=== PATIENT | male | born 1995 | race Caucasian/White ===

== ENCOUNTER 2020-05-14 18:12 | Emergency (ER) | payer MEDICAID ==
[~2020-05-14] VITALS: Ht 177.8 cm; Wt 148.8 kg
[~2020-05-14 18:12] MED LIST: BG FS; HUMULIN R100 U/1 M1 SC; LANTI SQ; NOR7T PO; ZITHROMAX250 MG PO
[2020-05-14 18:33] VITALS: BP 147/97; Ht 177.8 cm; Wt 148.8 kg
== END 2020-05-14 22:17 | disposition left against medical advice (07) ==
LOC: ED 18:12
DX: Z53.21 Procedure and treatment not carried out due to patient leaving prior to being seen by health care provider (principal)

== ENCOUNTER 2020-08-22 11:24 | Emergency (ER) | payer OTHER ==
[~2020-08-22] VITALS: Ht 177.8 cm; Wt 142.4 kg
[2020-08-22 11:56] VITALS: Ht 177.8 cm; Wt 142.4 kg
[2020-08-22 12:50] LABS: BASOPHIL % 0.9 % (0.2-1.5); PLATELET COUNT 194 x10^3mcL (152-348); RED CELL DISTRIBUTION WIDTH 13.3 % (12.1-16.2)
[2020-08-22 13:01] LABS: CALCIUM 9.3 mg/dL (8.5-10.1); CARBON DIOXIDE 29.7 mmol/L (21-32); CHLORIDE SERUM 96 mmol/L (98-107); GFR1 > 60 mL/min; GLUCOSE SERUM 407 mg/dL (74-106); POTASSIUM SERUM 4.4 mmol/L (3.5-5.1); SODIUM SERUM 134 mmol/L (136-145)
[2020-08-22 13:05] LABS: ALKALINE PHOSPHATASE 108 U/L (46-116); ALT/SGPT 48 U/L (16-63); AST/SGOT 22 U/L (15-37); BILIRUBIN TOTAL 0.7 mg/dL (0.20-1.00); LIPASE 107 IU/L (73-393)
[2020-08-22 13:16] LABS: TOTAL PROTEIN, SERUM 8.3 g/dL (6.4-8.2)
[2020-08-22] MEDS ORDERED: ULTRAM50 MG PO (13:46)
[2020-08-22 14:35] VITALS: BP 125/60
== END 2020-08-22 14:36 | disposition home or self-care (01) ==
LOC: ED 11:24
PROVIDERS: Emergency Medicine
DX: K85.90 Acute pancreatitis without necrosis or infection, unspecified (principal); E11.9 Type 2 diabetes mellitus without complications
CPT/HCPCS: 82962; J1815; J2270; J2405; J7030